=== PATIENT | female | born 1990 | race American Indian/Alaskan Native ===

== ENCOUNTER 2018-03-13 15:44 | Emergency (ER) | payer MEDICAID ==
[2018-03-13] MEDS ORDERED: Sodium Chloride 0.9% 1,000 ML IV STA (17:11)
--- NOTE | 2018-03-13 17:15 | ED PDOC ---
HPI: General Adult Time Seen by Provider: 03/13/18 17:01 Chief Complaint (Nursing): GI Problem Chief Complaint (Provider): Pelvic pain History Per: Patient History/Exam Limitations: no limitations Onset/Duration Of Symptoms: Days (yesterday) Additional Complaint(s): Pt. with sore throat but able to swallow yesterday. Today developed cough, pelvic pain, muscle aches. Nausea, no vomit. No dysuria, weakness, headaches, neck pain. No dyspnea. Has chest pain mild. No leg pain. Nasal congestion. Has dizziness like light-headed mild. Past Medical History Reviewed: Nursing Documentation, Vital Signs Vital Signs: Last Vital Signs Temp 99.2 F 03/13/18 16:16 Pulse 118 H 03/13/18 16:16 Resp 16 03/13/18 16:16 BP 123/80 03/13/18 16:16 Pulse Ox 100 03/13/18 16:16 - Medical History PMH: No Chronic Diseases - Surgical History Surgical History: No Surg Hx - Family History Family History: States: Unknown Family Hx - Home Medications Home Medications: Ambulatory Orders Medication Instructions Recorded No Known Home Med 07/19/15 - Allergies Allergies/Adverse Reactions: Allergies Allergy/AdvReac Type Severity Reaction Status Date / Time No Known Allergies Allergy Verified 03/13/18 16:16 Review of Systems ROS Statement: Except As Marked, All Systems Reviewed And Found Negative Constitutional: Positive for: Fever ENT: Positive for: Nose Congestion, Throat Pain Cardiovascular: Positive for: Chest Pain, Light Headedness Respiratory: Positive for: Cough. Negative for: Shortness of Breath Gastrointestinal: Positive for: Nausea Genitourinary Female: Positive for: Pelvic Pain Skin: Negative for: Rash Neurological: Positive for: Dizziness. Negative for: Weakness, Headache Physical Exam - Reviewed Nursing Documentation Reviewed: Yes Vital Signs Reviewed: Yes - Physical Exam Appears: Positive for: Non-toxic, No Acute Distress Head Exam: Positive for: ATRAUMATIC, NORMAL INSPECTION, NORMOCEPHALIC Skin: Positive for: Normal Color, Warm, DRY Eye Exam: Positive for: EOMI, Normal appearance, PERRL ENT: Positive for: Nasal Congestion Neck: Positive for: Normal, Painless ROM, Supple Cardiovascular/Chest: Positive for: Regular Rate, Rhythm Respiratory: Positive for: CNT, Normal Breath Sounds Gastrointestinal/Abdominal: Positive for: Soft, Tenderness (mild across lower pelvic) Back: Positive for: Normal Inspection. Negative for: L CVA Tenderness, R CVA Tenderness Extremity: Positive for: Normal ROM. Negative for: Tenderness, Pedal Edema Neurologic/Psych: Positive for: Alert, piercing artist II-XII, Oriented - ECG O2 Sat by Pulse Oximetry: 100 Pulse Ox Interpretation: Normal - Radiology X-Ray: Interpreted by Me, Viewed By Me X-Ray Interpretation: No Acute Disease Disposition - Disposition Forms: [facility] (French)
[2018-03-13 18:36] LABS: BLOOD UREA NITROGEN 6 mg/dl (7-17); CALCIUM 8.9 mg/dL (8.4-10.2); GFR NON-AFRICAN AMERICAN > 60
--- NOTE | 2018-03-13 18:38 | RAD ---
Date of service: 03/13/2018 HISTORY: pain COMPARISON: No prior. TECHNIQUE: Chest PA and lateral FINDINGS: LUNGS: No active pulmonary disease. PLEURA: No significant pleural effusion identified. No pneumothorax apparent. CARDIOVASCULAR: No aortic atherosclerotic calcification present. Normal cardiac size. No pulmonary vascular congestion. OSSEOUS STRUCTURES: No significant abnormalities. VISUALIZED UPPER ABDOMEN: Normal. OTHER FINDINGS: None. IMPRESSION: No active disease. Concordant results with the preliminary interpretation rendered by the emergency department physician procedure.
[2018-03-13 18:41] LABS: ALBUMIN 4.4 g/dL (3.5-5.0); ALT/SGPT 11 U/L (9-52); AST/SGOT 37 U/L (14-36)
--- NOTE | 2018-03-13 19:03 | ED PDOC ---
- Laboratory Results Result Diagrams: 03/13/18 19:26 03/13/18 18:19 - ECG O2 Sat by Pulse Oximetry: 100 Medical Decision Making Medical Decision Makin:00 Patient endorsed to this provider from Dr. Jorge. Pending CT scan and blood work. 19:17 Pelvis/transvaginal ultrasound FINDINGS: ENDOMETRIUM: Normal thickness. UTERUS/CERVIX: The uterus appears within normal limits. No uterine fibroid or other mass evident. RIGHT OVARY: Normal Doppler flow. No abnormal mass. LEFT OVARY: Normal Doppler flow. Left ovarian cyst measuring 2.4 x 1.7 x 2.2 cm. FREE FLUID: No free fluid. IMPRESSION: No uterine mass. Left ovarian cyst measuring 2.4 x 1.7 x 2.2 cm. Patient is feeling better, tolerating PO. Advised her that her symptoms are likely viral. Advised rest, NSAIDs, fluids, and followup with PMD early next week. Very well appearing upon discharge, improved vitals. Scribe Attestation: Documented by David Saucedo acting as a scribe for Ruben Patterson MD. Provider Scribe Attestation: All medical record entries made by the Scribe were at my direction and personally dictated by me. I have reviewed the chart and agree that the record accurately reflects my personal performance of the history, physical exam, medic al decision making, and the department course for this patient. I have also personally directed, reviewed, and agree with the discharge instructions and disposition. Disposition - Clinical Impression Clinical Impression: Viral illness - POA Present On Arrival: None - Disposition Referrals: [facility] [Outside] Disposition: Routine/Home Disposition Time: 20:00 Condition: STABLE Additional Instructions: Take plenty of rest, hydrate, and see your primary care doctor early next week for a checkup. Prescriptions: Ibuprofen [Motrin Tab] 600 mg PO Q6 #30 tab Instructions: Viral Syndrome (DC) Forms: [facility] (Kiswahili)
[2018-03-13 19:30] LABS: BASO # 0.1 K/uL (0.0-0.2); BASO % 0.5 % (0.0-2.0); EOS % 0.1 % (0.0-4.0); HEMOGLOBIN 13.1 g/dL (12.0-16.0); LYMPH # 1.2 K/uL (1.0-4.3); LYMPH % 9.1 % (20.0-40.0); MEAN CELL VOLUME 86.5 fl (81.0-99.0); MEAN CORPUSCULAR HEMOGLOBIN 28.2 pg (27.0-31.0); MEAN CORPUSCULAR HGB CONC 32.6 g/dL (33.0-37.0); MEAN PLATELET VOLUME 8.5 fl (7.2-11.7); MONO # 0.9 K/uL (0.0-0.8); MONO % 7.3 % (0.0-10.0); NEUT # 10.5 K/uL (1.8-7.0); NRBC % 0.1 % (0.0-0.0); PLATELET COUNT 241 K/uL (130-400); RBC 4.66 Mil/uL (3.80-5.20); RED CELL DISTRIBUTION WIDTH 13.4 % (11.5-14.5); WHITE BLOOD COUNT 12.7 K/uL (4.8-10.8)
[2018-03-13 20:08] LABS: ANISOCYTOSIS SLIGHT; LYMPHOCYTE 13 % (20-50); MONOCYTE 6 % (0-10); NEUTROPHIL 81 % (42-75); PLATELET ESTIMATE NORMAL (NORMAL); TOTAL CELLS COUNTED 100
[2018-03-13 20:17] VITALS: BP 126/79; PULSE 96; RESP 18; TEMP 98.7
[2018-03-14 03:03] VITALS: O2SAT 100
--- NOTE | 2018-03-14 13:30 | US ---
Date of service: 03/13/2018 HISTORY: pelvic pain COMPARISON: None available. TECHNIQUE: Transabdominal and transvaginal pelvic ultrasound was performed with longitudinal and transverse images submitted for interpretation. FINDINGS: UTERUS: Measures 9.1 x 4.3 x 6.3 cm. Normal in size and appearance. No fibroid or other mass lesion seen. ENDOMETRIUM: Measures 8.4 mm in diameter. Unremarkable. CERVIX: No cervical abnormality identified. RIGHT OVARY: Measures 2.7 x 1.5 x 2.1 cm. No solid mass. Normal flow. LEFT OVARY: Measures 3.6 x 2.3 x 2.8 cm. No solid mass. Normal flow. Likely dominant follicle measuring 2.4 x 1.7 x 2.2 cm. FREE FLUID: No significant free fluid noted. OTHER FINDINGS: None. IMPRESSION: 2.4 cm probable dominant follicle left ovary with remainder of the examination unremarkable. Concordant preliminary report from [facility], 03/13/2018 7:17 p.m..
--- NOTE | 2018-03-14 15:05 | CARD ---
APPROVED REPORT Date of service: 03/13/2018 EKG Measurement Heart [id number] <Conclusion> Sinus tachycardia Otherwise normal ECG
== END 2018-03-13 20:15 | disposition home or self-care (01) ==
LOC: H.ER 15:44
DX: B34.9 Viral infection, unspecified (principal)
CPT/HCPCS: 71046; 76830; 76856; 80053; 81025; 85025; 87804; 93005; 96374; 99284; J1885; J2405; J7030